=== PATIENT | male | born 1950 | race Caucasian/White ===

== ENCOUNTER → 2016-10-19 | Day surgery (SDC) | payer OTHER ==
[~2016-10-19] VITALS: Ht 172.7 cm; Wt 90.9 kg
[~2016-10-19] MED LIST: ATR25 PO; B-CO1CAP17 PO; CALC667C PO; CIPR1TAB10 PO; CIPROFLOXACIN 400MG / 200ML D5W IV ONE; FENTANYL CITRATE INJ 50 MCG/1 ML 2 ML VIAL ONE; FLM4 PO; GABA-112 PO; KETAMINE HCL INJ 50 MG/ML 10 ML VIAL ONE; LISI-729 PO; LSN25 PO; MCLIN; MIDAZOLAM HCL 1 MG/ML 2ML VIAL ONE; SODIUM CHLORIDE 0.9% 1000ML 1,000 ML IV SCH; VITA PO; WARF5TAB90 PO; [UNRECOGNIZED DRUG - OTHER] IJ
[2016-10-19 06:40] VITALS: BP 164/89; PULSE 89; TEMP 36.9; O2SAT 98; Ht 172.7 cm; Wt 90.9 kg
[2016-10-19 07:28] LABS: INR 3.4 (0.9-1.1); PARTIAL THROMBOPLASTIN RATIO 1.8; PROTHROMBIN TIME (PATIENT) 37.7 SECONDS (9.0-12.0)
[2016-10-19 07:44] LABS: BUN/CREATININE RATIO 4.4 (10-20); CALCIUM 8.8 mg/dl (8.5-10.1); CREATININE 5.7 mg/dl (0.60-1.40); POTASSIUM 4.4 mmol/L (3.5-5.1)
--- NOTE | 2016-10-19 07:46 | Progress Note ---
Progress Note Date of Service October 19, 2016. Progress Note Patient was not instructed to stop coumadin by Pre-op clinic, case needs to be cancelled due to INR.
--- NOTE | 2016-10-19 08:07 | Progress Note ---
Progress Note Date of Service October 19, 2016. Progress Note Pt did not hold warfarin. INR 3.4. Case cancelled by Dr. Yepez. I informed him that it is not the responsibility of [facility] to manage a patient's warfarin in the perioperative period. [facility] never tells a patient to either hold or continue warfarin. I informed him that this is the joint responsibility of the physician performing the procedure and the physician prescribing the warfarin.
== END | disposition home or self-care (01) ==
LOC: C.ACU 05:05
PROVIDERS: ATTEND Internal Medicine Gastroenterology
DX: D13.6 Benign neoplasm of pancreas (principal); Z53.09 Procedure and treatment not carried out because of other contraindication; E11.9 Type 2 diabetes mellitus without complications

== ENCOUNTER → 2016-11-23 | Day surgery (SDC) | payer OTHER ==
[~2016-11-23] VITALS: Ht 172.7 cm; Wt 90.9 kg
[~2016-11-23] MED LIST changes: +ATROPINE SULFATE 0.1 MG/ML 5ML SYR IV PRN; -CIPR1TAB10 PO; -CIPROFLOXACIN 400MG / 200ML D5W IV ONE; +CIPROFLOXACIN 400MG / 200ML D5W IV SCH; +DEXAMETHASONE SOD INJ 4 MG/ML VIAL ONE; +EpHEDrine SULFATE INJ 50 MG/ML AMP IV PRN; +GLYCOPYRROLATE INJ 0.2 MG/ML VIAL ONE; -KETAMINE HCL INJ 50 MG/ML 10 ML VIAL ONE; +LIDOCAINE HCL 2% 2 ML VIAL (20MG/ML) ONE; -LISI-729 PO; +NEOSTIGMINE METHYLSULFATE 5 MG/5 ML SYR ONE; +NSS 1000ML IV SCH; +ONDANSETRON INJ 2 MG/ML 2 ML VIAL IV PRN; +ONDANSETRON INJ 2 MG/ML 2 ML VIAL ONE; +PROPOFOL IV EMULSION 10 MG/ML 20 ML VIAL IV ONE; +ROCURONIUM BROMIDE 10 MG/ML 5 ML VIAL ONE; -SODIUM CHLORIDE 0.9% 1000ML 1,000 ML IV SCH; +SUCCINYLCHOLINE CHLORIDE 20 MG/ML 10 ML VIAL IV ONE
[2016-11-23 07:07] VITALS: BP 119/63; PULSE 92; TEMP 36.6; O2SAT 99; Ht 172.7 cm; Wt 90.9 kg
[2016-11-23 07:45] LABS: PARTIAL THROMBOPLASTIN RATIO 1.1; PROTHROMBIN TIME (PATIENT) 10.8 SECONDS (9.0-12.0)
[2016-11-23 08:14] LABS: BUN/CREATININE RATIO 4.5 (10-20); CREATININE 5.9 mg/dl (0.60-1.40); POTASSIUM 4.1 mmol/L (3.5-5.1)
--- NOTE | 2016-11-23 08:17 | Endo History and Physical ---
History & Physical Date of Service: Nov 23, 2016. 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 Past Surgical History Hx Cardiac Surgery: No Hx Abdominal Surgery: No Hx Post-Op Nausea and Vomiting: No Hx Cancer Surgery: No Hx Thoracic Surgery: No Hx Orthopedic: No Hx Urinary Tract Surgery: Yes (LUE AVF CREATION, REVISION AVF X 3) Social History Smoking Status: Never Smoker Hx Substance Use: No Hx Alcohol Use: No Allergies Coded Allergies: NO KNOWN DRUG ALLERGIES (Verified Allergy, Unknown, NONE, 11/02/16) POLLEN (Verified Allergy, Unknown, POLLEN RAGWEED-STUFFY, 11/02/16) Current Medications Reported Home Medications Medications Dose Route/Sig Max Daily Dose Days Date Category Dose Instructions Lisinopril 2.5 Mg Tab 4 Tab PO HS 11/02/16 Reported Tamsulosin HCl 0.4 Mg Cap 2 Cap PO QPM 10/01/16 Reported [Odalys Caps] 1 Cap PO QAM 10/01/[address] (Calcitonin [address]) 30 [place]/3.7 Ml Soln 1 [place] NA QAM 10/01/16 Reported [Krystexxa] Unknown Strength Unknown Dose IJ UD 10/01/16 Reported ONCE EVERY 2 WEEKS. THIS IS A TRIAL FOR 6 INJECTIONS TO SEE IF IT WORKS 11/07/16 LAST INJECTION Nephrocaps (Vitamin B Complex/Vit C/Folic Acid) Cap 1 Cap PO QAM 08/06/16 Reported Coumadin (Warfarin Sodium) 5 Mg Tab 4.5 Mg PO QPM 08/06/16 Reported HOLD ON SATURDAY PRIOR Phoslo 667 Mg (Calcium Acetate (Phosphate Bin) 667 Mg Cap 4 Capsules PO AFTER MEALS 08/06/16 Reported Hydroxyzine HCl 25 Mg Tab 25 Mg PO HS 08/06/16 Reported Neurontin (Gabapentin) 100 Mg Cap 100 Mg PO BID 08/06/16 Reported Vital Signs Weight (Kilograms): 90.91 Height (Feet): 5 Height (Inches): 8 Date Time Temp Pulse Resp B/P (MAP) Pulse Ox O2 Delivery O2 Flow Rate FiO2 11/23/16 07:07 36.6 92 20 119/63 (81) 99 Room Air Physical Exam General Appearance: no apparent distress Respiratory/Chest: Auscultation: breath sounds normal Cardiovascular: Heart Auscultation: RRR Abdomen: Inspection & Palpation: soft Assessment and Plan EUS for further evaluation of a HOP cyst. Risks discussed to include bleeding, infection, perforation, pain, and pain. Plan EUS EGD Pre-op Cipro
--- NOTE | 2016-11-23 10:37 | GI REPORT ---
Procedure Date: 11/23/2016 10:10 AM Procedure: Upper GI endoscopy Indications: Abnormal CT of the GI tract Medicines: General Anesthesia Complications: No immediate complications. Estimated blood loss: Minimal. Estimated Blood Loss: Estimated blood loss was minimal. Procedure: Pre-Anesthesia Assessment: - Prior to the procedure, a History and Physical was performed, and patient medications, allergies and sensitivities were reviewed. The patient's tolerance of previous anesthesia was reviewed. - The risks and benefits of the procedure and the sedation options and risks were discussed with the patient. All questions were answered and informed consent was obtained. - Patient identification and proposed procedure were verified prior to the procedure by the physician, the nurse and the meat and seafood clerk. The procedure was verified in the procedure room. - Pre-procedure physical examination revealed no contraindications to sedation. - ASA Grade Assessment: IV - A patient with severe systemic disease that is a constant threat to life. - After reviewing the risks and benefits, the patient was deemed in satisfactory condition to undergo the procedure. - The anesthesia plan was to use general anesthesia. - Immediately prior to administration of medications, the patient was re-assessed for adequacy to receive sedatives. - The heart rate, respiratory rate, oxygen saturations, blood pressure, adequacy of pulmonary ventilation, and response to care were monitored throughout the procedure. - The physical status of the patient was re-assessed after the procedure. After obtaining informed consent, the endoscope was passed under direct vision. Throughout the procedure, the patient's blood pressure, pulse, and oxygen saturations were monitored continuously. The scope was introduced through the mouth, and advanced to the third part of duodenum. The upper GI endoscopy was accomplished without difficulty. The patient tolerated the procedure well. Findings: The upper third of the esophagus and middle third of the esophagus were normal. The esophagus and gastroesophageal junction were examined with white light. 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 These changes involved the mucosa at the upper extent of the gastric folds (45 cm from the incisors) extending to the Z-line (43 cm from the incisors). Multiple tongues of salmon-colored mucosa were present from 43 to 45 cm. The maximum longitudinal extent of these esophageal mucosal changes was 2 cm in length. Biopsies were taken with a cold forceps for histology. Estimated blood loss: Minimal. Diffuse moderate inflammation characterized by erythema and granularity was found in the entire examined stomach. Biopsies were taken with a cold forceps for histology. Estimated blood loss was minimal. The examined duodenum was normal. 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 Biopsied. - Gastritis. Biopsied. - Normal examined duodenum. Recommendation: - Perform an upper endoscopic ultrasound (UEUS) today. - Await pathology results. Ramya Yepez D.O. Ramya Yepez, 11/23/2016 10:36:51 AM This report has been signed electronically. Note Initiated On: 11/23/2016 10:10 AM I attest to the content of the Intraoperative Record and orders documented therein, exceptions below
--- NOTE | 2016-11-23 11:04 | GI REPORT ---
Procedure Date: 11/23/2016 10:09 AM Procedure: Upper EUS Indications: Pancreatic cyst on CT scan Medicines: General Anesthesia Complications: No immediate complications. Estimated blood loss: Minimal. Estimated Blood Loss: Estimated blood loss was minimal. Procedure: Pre-Anesthesia Assessment: - Prior to the procedure, a History and Physical was performed, and patient medications, allergies and sensitivities were reviewed. The patient's tolerance of previous anesthesia was reviewed. - The risks and benefits of the procedure and the sedation options and risks were discussed with the patient. All questions were answered and informed consent was obtained. - Patient identification and proposed procedure were verified prior to the procedure by the physician, the nurse and the cathodic protection technician. The procedure was verified in the procedure room. - Pre-procedure physical examination revealed no contraindications to sedation. - ASA Grade Assessment: IV - A patient with severe systemic disease that is a constant threat to life. - After reviewing the risks and benefits, the patient was deemed in satisfactory condition to undergo the procedure. - The anesthesia plan was to use general anesthesia. - Immediately prior to administration of medications, the patient was re-assessed for adequacy to receive sedatives. - The heart rate, respiratory rate, oxygen saturations, blood pressure, adequacy of pulmonary ventilation, and response to care were monitored throughout the procedure. - The physical status of the patient was re-assessed after the procedure. After obtaining informed consent, the endoscope was passed under direct vision. Throughout the procedure, the patient's blood pressure, pulse, and oxygen saturations were monitored continuously. The Endosonoscope was introduced through the mouth, and advanced to the second part of duodenum. The upper EUS was accomplished without difficulty. The patient tolerated the procedure well. Findings: Endosonographic Finding : There was dilation in the common bile duct which measured up to 6.6 mm. There was no sign of significant endosonographic abnormality in the liver. Homogeneous parenchyma and no focal pathology were identified. No lymphadenopathy seen. There was no sign of significant endosonographic abnormality in the pancreatic body, in the pancreatic tail and in the main pancreatic duct. No masses, the pancreatic duct was thin in caliber. The PD measured 2.6 mm in the body (just above normal) A hypoechoic lesion suggestive of a cyst was identified in the pancreatic head. It is not in obvious communication with the pancreatic duct. The PD was 3.1 mm in the region of the pancreatic head. The lesion measured 32 mm by 23 mm in maximal cross-sectional diameter. There were many compartments thinly septated. The outer wall of the lesion was not seen. There was no associated mass. There was no internal debris within the fluid-filled cavity. Diagnostic needle aspiration for fluid was performed. Color Doppler imaging was utilized prior to needle puncture to confirm a lack of significant vascular structures within the needle path. Two passes were made with the 22 gauge needle using a transduodenal approach. A stylet was used. The amount of fluid collected was 5 mL. The fluid was clear, serous and slightly viscous. Sample(s) were sent for amylase, cytology and CEA. Estimated blood loss was minimal. Impression: - There was dilation in the common bile duct which measured up to 6.6 mm. - Visualized portion of the liver were normal. - A cystic lesion was seen in the pancreatic head. 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 Fine needle aspiration for fluid performed to further clarify. Recommendation: - Discharge patient to home (ambulatory). - Advance diet as tolerated today. - Await cytology results and await tumor markers. - Cipro twice daily for 3 days. Ramya Yepez D.O. Ramya Yepez, 11/23/2016 11:03:51 AM This report has been signed electronically. Note Initiated On: 11/23/2016 10:09 AM I attest to the content of the Intraoperative Record and orders documented therein, exceptions below
--- NOTE | 2016-11-23 11:13 | [facility] Post Operative Brief Note ---
Immediate Operative Summary Operative Date Nov 23, 2016. Pre-Operative Diagnosis Pancreatic cyst Post-Operative Diagnosis 32 mm pancreatic head cyst Gastritis Barretts Esophagus Procedure(s) Performed endoscopic ultrasound with fine needle aspiration, upper endoscopy Surgeon Dr. Chris Yepez Board Operator Surgeon(s) None Estimated Blood Loss 0 ml Findings 32 mm pancreatic head cyst Gastritis Barretts Esophagus Specimens Gastric biopsies Esophageal biopsies Pancreatic cyst aspiration (CEA, Amylase, Cytology) Anesthesia General Complication(s) None Disposition Recovery Room / PACU
--- NOTE | 2016-11-23 11:15 | Discharge Instructions ---
Endoscopy Patient Instructions Date / Procedure(s) Performed Nov 23, 2016. EGD, Other (Endoscopic Ultrasound) Allergy Information Coded Allergies: NO KNOWN DRUG ALLERGIES (Verified Allergy, Unknown, NONE, 11/02/16) POLLEN (Verified Allergy, Unknown, POLLEN RAGWEED-STUFFY, 11/02/16) Discharge Date / Findings Nov 23, 2016. 32 mm pancreatic cyst Gastritis Barretts Esophagus Medication Instructions Reported Home Medications Medications Dose Route/Sig Max Daily Dose Days Date Category Dose Instructions Lisinopril 2.5 Mg Tab 4 Tab PO HS 11/02/16 Reported Tamsulosin HCl 0.4 Mg Cap 2 Cap PO QPM 10/01/16 Reported [Odalys Caps] 1 Cap PO QAM 10/01/16 Reported Calcitonin-[place] (Calcitonin [place]) 30 [place]/3.7 Ml Soln 1 [place] NA QAM 10/01/16 Reported [Krystexxa] Unknown Strength Unknown Dose IJ UD 10/01/16 Reported ONCE EVERY 2 WEEKS. THIS IS A TRIAL FOR 6 INJECTIONS TO SEE IF IT WORKS 11/07/16 LAST INJECTION Nephrocaps (Vitamin B Complex/Vit C/Folic Acid) Cap 1 Cap PO QAM 08/06/16 Reported Coumadin (Warfarin Sodium) 5 Mg Tab 4.5 Mg PO QPM 08/06/16 Reported HOLD ON SATURDAY PRIOR Phoslo 667 Mg (Calcium Acetate (Phosphate Bin) 667 Mg Cap 4 Capsules PO AFTER MEALS 08/06/16 Reported Hydroxyzine HCl 25 Mg Tab 25 Mg PO HS 08/06/16 Reported Neurontin (Gabapentin) 100 Mg Cap 100 Mg PO BID 08/06/16 Reported Provider Instructions Activity Restrictions - No exercising or heavy lifting for 24 hours. - Do not drink alcohol the day of the procedure. - Do not drive a car or operate machinery until the day after the procedure. - Do not make any important decisions or sign important papers in 24 hours after the procedure. Following Day: - Return to full activity which may include returning to work/school. Diet Start your diet with liquids and light foods (jello, soup, juice, toast). Then eat your usual diet if not nauseated. Treatment For Common After Affects For mild abdominal pain, bloating, or excessive gas: - Rest - Eat lightly - Lie on right side Follow-Up Information Await cytology results Cipro 2 times daily for 3 days May restart coumadin today Anesthesia Information What You Should Know You have had a procedure that required some medicine to reduce anxiety and discomfort. This treatment is called moderate sedation. After receiving the treatment, you may be sleepy, but you will be able to breathe on your own. The effects of the treatment may last for several hours. Follow these instructions along with Activity/Diet recommendations noted above: * Do NOT do anything where dizziness or clumsiness would be dangerous. * Rest quietly at home today, then you can be up and about tomorrow. * Have a responsible person stay with you the rest of today. * You may have had an I.V. today. If so, you may take the dressing off later today. Recommendations Call your doctor if: * Trouble breathing * Continuous vomiting for more than 24 hours * Temperature above 101 degrees * Severe abdominal pain or bloating * Pain not relieved by pain medicine ordered * There is increased drainage or redness from any incision * A large amount of rectal bleeding greater than 2-3 tablespoons. (If you had a polyp/s removed or have hemorrhoids, a small amount of blood - from the rectum is to be expected.) * You have any unanswered questions or concerns. IN THE EVENT OF A SERIOUS EMERGENCY, GO TO THE NEAREST EMERGENCY ROOM Your discharge instructions were prepared by provider Ramya Yepez. Patient Instructions Signature Page Sukhdeep Romano Patient (or Guardian) Signature/Date: I have read and understand the instructions given to me by my caregivers. Caregiver/RN/Doctor Signature/Date: The above-named patient and/or guardian has received patient instructions on this date. + Original Patient Signature Page (only) stays with chart. Please make copy for patient.
[2016-11-23 11:50] VITALS: BP 114/62; PULSE 90; TEMP 36.6; O2SAT 99
[2016-11-23 12:14] VITALS: BP 125/75; PULSE 89; O2SAT 99
--- NOTE | 2016-11-23 12:29 | Anesthesiology Progress Note ---
Anesthesia Post Op Note Date & Time Nov 23, 2016 at 12:28 Vital Signs Pain Intensity: 0 Vital Signs Past 12 Hours Date Time Temp Pulse Resp B/P (MAP) Pulse Ox O2 Delivery O2 Flow Rate FiO2 11/23/16 12:14 89 16 125/75 99 Room Air 11/23/16 11:50 36.6 90 16 114/62 99 Room Air 11/23/16 11:45 36.3 11/23/16 11:42 78 19 11/23/16 11:42 78 19 96 11/23/16 11:41 119/69 11/23/16 11:37 85 17 100 11/23/16 11:37 89 17 11/23/16 11:36 85 18 11/23/16 11:36 84 18 139/69 100 11/23/16 11:31 91 17 109/62 97 11/23/16 11:31 89 17 11/23/16 11:30 81 21 99 11/23/16 11:30 87 21 11/23/16 11:26 116/57 11/23/16 11:25 99 26 100 11/23/16 11:25 93 26 11/23/16 11:21 142/55 11/23/16 11:20 87 28 100 11/23/16 11:20 89 28 11/23/16 11:19 89 17 100 11/23/16 11:19 85 17 11/23/16 11:16 123/74 11/23/16 11:14 91 19 11/23/16 11:14 85 19 100 11/23/16 11:11 125/71 11/23/16 11:09 87 14 100 11/23/16 11:09 84 14 11/23/16 11:06 120/65 11/23/16 11:05 115/65 11/23/16 11:04 96 11/23/16 11:04 36.4 90 16 115/65 100 Mask 10 11/23/16 07:07 36.6 92 20 119/63 (81) 99 Room Air Notes Mental Status: alert / awake / arousable, participated in evaluation Pt Amnestic to Procedure: Yes Nausea / Vomiting: adequately controlled Pain: adequately controlled Airway Patency, RR, SpO2: stable & adequate BP & HR: stable & adequate Hydration State: stable & adequate Anesthetic Complications: no major complications apparent
[2016-11-23 12:45] VITALS: BP 140/76; PULSE 86; TEMP 36.4; O2SAT 100
[2016-11-23 16:29] LABS: CALCIUM 8.8 mg/dl (8.5-10.1)
== END | disposition home or self-care (01) ==
LOC: C.ACU 06:19
PROVIDERS: ATTEND Internal Medicine Gastroenterology
DX: K22.70 Barrett's esophagus without dysplasia (principal); K29.70 Gastritis, unspecified, without bleeding; K83.8 Other specified diseases of biliary tract; K86.2 Cyst of pancreas; Z79.01 Long term (current) use of anticoagulants; Z79.899 Other long term (current) drug therapy